=== PATIENT | female | born 1975 | race Caucasian/White ===

== ENCOUNTER 2017-04-01 15:53 | Emergency (ER) | payer MEDICAID ==
[~2017-04-01] VITALS: Ht 165.1 cm; Wt 156.5 kg
[~2017-04-01 15:53] MED LIST: ACCUNEB1.25 MG/3; AMLODIPINE BESY10 MG PO; CLONIDINE HCL0.1 MG PO; CLONIDINE HCL0.2 MG PO; LISINOPRIL10 MG PO; LISINOPRIL40 MG PO; METOPROLOL TART50 MG PO; PROAIR HFA INH8.5 GM
[2017-04-01] MEDS ORDERED: NITROGLYCERIN 2% OINT 1 GM PKT TOP ONE (16:45)
--- NOTE | 2017-04-01 17:25 | Diagnostic Imaging Report ---
PROCEDURE:X-RAY CHEST, ONE VIEW COMPARISON:Chest x-ray 04/19/08 INDICATIONS:CHEST PAIN FINDINGS: The cardiomediastinal silhouette is normal. The perivascular markings are normal. The lungs are clear. Costophrenic angles are sharp. No pneumothorax. The osseous structures and soft tissues are unremarkable. CONCLUSION: No acute cardiopulmonary abnormality. Dictated by: Ally Quiros M.D. on 04/01/2017 at 17:33 Electronically approved by: Ally Quiros M.D. on 04/01/2017 at 17:33
== END 2017-04-01 20:27 | disposition left against medical advice (07) ==
LOC: ER 15:53
DX: R07.9 Chest pain, unspecified (principal)
CPT/HCPCS: 71010; 93005

== ENCOUNTER 2017-06-12 16:13 | Observation (INO) | payer SELFPAY ==
[~2017-06-12] VITALS: Ht 165.1 cm; Wt 195.0 kg
--- OUTSIDE RECORDS SUMMARY | 2017-06-12 16:15 | XMS REPORT ---
Author Author [facility] Address Unknown Phone Unavailable Care Team Providers Care Flight Engineer Instructor Name Role Phone DERIC ANIDNO Unavailable Unavailable Problems This patient has no known problems. Allergies, Adverse Reactions, Alerts This patient has no known allergies or adverse reactions. Medications This patient has no known medications. Results Test Description Test Time Test Comments Text Results Atomic Results Result Comments CHEST SINGLE (NOT PORTABLE) [place] [address] Patient Name: GLORIA SOTELO MR #: [id number] : 1975 Age/Sex: 42/F Req #: [id number] Adm Physician: Ordered by: DERIC ANDINO MD Report #: [id number] Location: ER Room/Bed: Procedure: [id number] DX/CHEST SINGLE (NOT PORTABLE) Exam Date: 04/01/17 Exam Time: 1700 REPORT STATUS: Signed PROCEDURE: X-RAY CHEST, ONE VIEW COMPARISON: Chest x-ray 04/19/08 INDICATIONS: CHEST PAIN FINDINGS: The cardiomediastinal silhouette is normal. The perivascular markings are normal. The lungs are clear. Costophrenic angles are sharp. No pneumothorax. The osseous structures and soft tissues are unremarkable. CONCLUSION: No acute cardiopulmonary abnormality. Dictated by: Eugene Quiros M.D. on 04/01/2017 at 17:33 Electronically approved by: Eugene Quiros M.D. on 04/01/2017 at 17:33 Dictated By: EUGENE QUIROS MD 173 Transcribed By : SHAUNNA on 04/01/171732 COPY TO: DERIC ANDINO MD
--- OUTSIDE RECORDS SUMMARY | 2017-06-12 16:15 | XMS REPORT | Clinical Summary ---
Author Author [facility] Address Unknown Phone Unavailable Care Team Providers Care Substation Technician Name Role Phone Asked, Pcp PCP Unavailable Allergies Active Allergy Reactions Severity Noted Date Comments Morphine Shortness Of Breath High 12/05/2016 Current Medications Prescription Sig. Disp. Refills Start End Date Status Date ondansetron ODT Take 4 mg by mouth every Active (ZOFRAN-ODT) 4 MG 8 (eight) hours. disintegrating tablet warfarin (COUMADIN) 7.5 Take 1 tablet (7.5 mg 30 tablet 11 12/08/19 Active MG tablet total) by mouth daily. 17 pantoprazole (PROTONIX) Take 40 mg by mouth 12/08/19 Discontin 40 MG EC tablet daily. 17 ued gabapentin (NEURONTIN) Take 300 mg by mouth 3 12/08/19 Discontin 300 mg capsule (three) times a day. 17 ued metoprolol tartrate Take 50 mg by mouth 2 12/08/19 Discontin (LOPRESSOR) 50 mg tablet (two) times a day. 17 ued sotalol (BETAPACE) 80 MG Take 80 mg by mouth 2 12/08/19 Discontin tablet (two) times a day. 17 ued escitalopram (LEXAPRO) 10 Take 10 mg by mouth 12/08/19 Discontin MG tablet daily. 17 ued acetaZOLAMIDE (DIAMOX) Take 250 mg by mouth 12/08/19 Discontin 250 MG tablet daily. 17 ued atorvastatin (LIPITOR) 40 Take 40 mg by mouth 12/08/19 Discontin MG tablet daily. 17 ued aspirin (ECOTRIN) 81 MG Take 81 mg by mouth 12/08/19 Discontin enteric coated tablet daily. 17 ued theophylline (ZAC-24) Take 400 mg by mouth 12/08/19 Discontin 300 MG 24 hr capsule daily. 17 ued atorvastatin (LIPITOR) 40 Take 1 tablet (40 mg 30 tablet 0 12/08/19 01/07/20 MG tablet total) by mouth daily for 17 17 30 days. gabapentin (NEURONTIN) Take 1 capsule (300 mg 90 capsule 0 12/08/19 01/07/20 300 mg capsule total) by mouth 3 (three) 17 17 times a day for 30 days. sotalol (BETAPACE) 80 MG Take 1 tablet (80 mg 60 tablet 0 12/08/19 01/07/20 tablet total) by mouth 2 (two) 17 17 times a day for 30 days. acetaZOLAMIDE (DIAMOX) Take 1 tablet (250 mg 30 tablet 0 12/08/19 250 MG tablet total) by mouth daily for 17 17 30 days. enoxaparin (LOVENOX) 100 Inject 1.61 mL (161 mg 8.1 mL 0 12/08/19 mg/mL syringe total) under the skin 17 daily for 5 days. aspirin (ECOTRIN) 81 MG Take 1 tablet (81 mg 30 tablet 0 12/08/19 enteric coated tablet total) by mouth daily for 17 17 30 days. pantoprazole (PROTONIX) Take 1 tablet (40 mg 30 tablet 0 12/08/19 40 MG EC tablet total) by mouth daily for 17 17 30 days. escitalopram (LEXAPRO) 10 Take 1 tablet (10 mg 30 tablet 0 12/08/19 01/07/20 MG tablet total) by mouth daily for 17 17 30 days. theophylline (ZAC-24) Take 1 capsule (300 mg 30 capsule 0 12/08/19 01/07/20 300 MG 24 hr capsule total) by mouth daily for 17 17 30 days. Active Problems Problem Noted Date Shortness of breath 12/05/2016 Encounters Date Type Specialty Care Team Description 12/05/2016 Emergency General Internal Medicine Mary Marie, Shortness of breath - DO (Primary Dx) 12/07/2016 Taylor Sher MD after 06/11/2016 Immunizations Name Dates Previously Given Next Due FLUCELVAX QUAD PF (0.5mL 12/07/2016 syringe) Social History Tobacco Use Types Packs/Day Years Used Date Current Every Day Smoker Cigarettes 1 20 Alcohol Use Drinks/Week oz/Week Comments No Sex Assigned at Date Recorded Not on file Last Filed Vital Signs Vital Sign Reading Time Taken Blood Pressure 134/94 12/07/2016 3:19 PM CDT Pulse 78 12/07/2016 3:19 PM CDT Temperature 35.9 C (96.7 F) 12/07/2016 3:19 PM CDT Respiratory Rate 24 12/07/2016 3:19 PM CDT Oxygen Saturation 98% 12/07/2016 3:19 PM CDT Inhaled Oxygen - - Concentration Weight 181 kg (399 lb 9.6 oz) 12/06/2016 1:04 AM CDT Height 165.1 cm (5' 5") 12/06/2016 1:04 AM CDT Body Mass Index 66.5 12/06/2016 1:04 AM CDT Plan of Treatment Health Maintenance Due Date Last Done Comments PAP SMEAR 1995 INFLUENZA VACCINE Completed 12/07/2016 Procedures Procedure Name Priority Date/Time Associated Diagnosis Comments ECHOCARDIOGRAM 2D Routine 12/07/2016 Results for this COMPLETE W MMODE SPECTRAL 3:13 PM CDT procedure are in the [facility] (70944) results section. after 06/11/2016 Results * Echocardiogram complete w contrast and 3D if needed (12/07/2016 3:13 PM) Component Value Ref Range Velocity Ratio (V1/V2) 0.79 m/s AoV Mean PG 3.27 mmHg AV LVOT peak gradient 3.71 mmHg MV mean gradient 1.48 mmHg MV valve area p 1/2 2.99 cm2 method E/A ratio 0.83 E wave decelartion time 253.80 msec LVOT Diam,S 2.06 cm LVOT area 3.33 cm2 LVOT Vmax 0.96 m/s LVOT VTI 0.19 m AoV Peak PG 5.93 mmHg MV Peak E Rafa 0.74 m/s MV stenosis pressure 1/2 73.60 ms time MV Peak A Rafa 0.89 m/s AoV Area, Vmax 2.64 cm2 AoV Area, VTI 2.79 cm2 AoV Vmax 1.22 m/s Left Atrium Dimension 4.39 cm Anterior TR Vpeak 2.78 mm/s MV E A ratio 0.84 mmHg TR pk grad 30.86 mmHg MR peak grad 2.54 mmHg Ao Root Diameter 3.19 cm LVOT CO 4.88 l/min LVOT HR for LVOT CO 76.44 bpm MV Vmax 0.80 m MV VTI Tips 0.19 m AoV Vmn 0.85 Ao Root Diameter 3.19 cm AoV VTI 0.23 m MV AE ratio 1.20 LVOT Vmn 0.68 Aov area Vmn 2.68 cm2 LVOT mean grad 2.14 mmHg MAX Pred HR 177.24 85 of MPHR 150.65 Calc MPHR 177.24 bpm MV Decel slope 2.92 m/s2 Pred Exer Dur R1 9.77 Pred METS R1 9.14 Specimen [facility] [address] [place] [id number] Narrative The left ventricle chamber size is normal. Left Ventricular ejection fraction is 50 - 55%. Left atrium size is mildly dilated. * Salmonella/shigella culture (12/07/2016 10:30 AM) Component Value Ref Range Salmonella/shigella No Aeromonas isolated culture isolate Comment: Specimen Information Specimen Source: Stool Specimen Site: Nonpreserved Specimen [facility]forming [facility] [address] [place] [address] * Gastrointestinal panel (12/07/2016 10:30 AM) Component Value Ref Range Gastrointestinal panel Negative for all pathogens tested: Negative for Salmonella Negative for Campylobacter Negative for Diarrheagenic E coli/Shigella Negative for Shiga-like toxin-producing E coli Negative for Plesiomonas shigelloides Negative for Yersinia enterocolitica Negative for Vibrio species Negative for Clostridium difficile (Toxin A/B) Negative for Cryptosporidium Negative for Giardia lamblia Negative for Cyclospora cayeteanensis Negative for Entamoeba histolytica Negative for Adenovirus F 40/41 Negative for Astrovirus Negative for Norovirus GI/GII Negative for Rotavirus A Negative for Sapovirus Negative for Clostridium difficile toxin Negative for E coli 0157 This real-time PCR assay detects the presence of nucleic acids (RNA or DNA) for the gastrointestinal pathogens listed. A result of "Not-detected" does not exclude the possibility of the presence of one or more pathogens at concentrations less than the detectable limits of the assay. Comment: Specimen Information Specimen Source: Stool Specimen Site: Nonpreserved Specimen Performing [facility] [address] [place] [address] * Troponin (12/07/2016 8:31 AM) Only the most recent of 6 results within the time period is included. Component Value Ref Range Troponin <0.01 0.00 - 0.60 ng/mL Comment: 0.11 - 1.49 ng/ml May indicate increased risk of acute coronary syndrome. >=1.5 ng/ml Consistent with acute myocardial infarction. The diagnostic value of a single normal or non-diagnostic result is questionable. Serial samples at 2-6 hour intervals are required to rule out acute myocardial injury. Specimen Performing Laboratory Plasma specimen [facility] [address] [place] [address] * ECG ED Preliminary Interpretation - NOT AN ORDER (12/07/2016 6:02 AM) Only the most recent of 2 results within the time period is included. Narrative Mary Marie DO 12/07/20166:02 AM ECG ED Preliminary Interpretation - Not an Order Performed by: MARY MARIE Authorized by: MARY MARIE ECG reviewed by ED Physician in the absence of a green building architect: yes Interpretation: Interpretation: abnormal Rate: ECG rate:90 ECG rate assessment: normal Rhythm: Rhythm: sinus rhythm Ectopy: Ectopy: none QRS: QRS axis:Left Conduction: Conduction: normal ST segments: ST segments:Normal T waves: T waves: normal Comments: ECG completed at 2132 on 12/05/2016. * Estimated GFR (12/07/2016 5:02 AM) Only the most recent of 4 results within the time period is included. Component Value Ref Range GFR Non Af Amer >90 mL/min/1.73 m2 GFR Af Amer >90 mL/min/1.73 m2 Comment: Chronic kidney disease: <60 mL/min/1.73m2 Kidney failure: <15 mL/min/1.73m2 The estimated GFR is calculated from the IDMS-traceable Modification of Diet in Renal Disease Equation. The accuracy of the calculation is poor when the creatinine is normal. Calculated values >90 mL/min/1.73m2 are not reported. This equation has not been validated in children (<18 years), women, the elderly (>70 years), or ethnic groups other than Caucasians and Americans. Specimen Performing Laboratory Plasma specimen [facility] [address] [place] [address] * CBC with platelet and differential (12/07/2016 5:02 AM) Only the most recent of 3 results within the time period is included. Component Value Ref Range WBC 6.9 4.2 - 11.0 k/uL RBC 4.36 4.04 - 5.86 m/uL HGB 10.9 (L) 11.5 - 15.3 g/dL HCT 35.6 34.0 - 45.0 % MCV 81.7 80.0 - 98.0 fL MCH 25.0 (L) 27.0 - 34.0 pg MCHC 30.6 (L) 31.5 - 36.5 g/dL RDW - SD 43.8 37.0 - 51.0 fL MPV 9.3 7.4 - 10.4 fL Platelet count 295 150 - 400 k/uL Nucleated RBC 0.00 /100 WBC Neutrophils 59.3 36.0 - 66.0 % Lymphocytes 29.8 24.0 - 44.0 % Monocytes 6.5 (H) 0.0 - 6.0 % Eosinophils 3.6 0.0 - 6.0 % Basophils 0.4 0.0 - 1.2 % Immature granulocytes 0.4 0.0 - 1.0 % Specimen Performing Laboratory Blood [facility] [address] [place] [address] [place] [address] * Lipid panel (12/07/2016 5:02 AM) Component Value Ref Range Cholesterol 127 120 - 200 mg/dL Triglycerides 104 50 - 150 mg/dL HDL cholesterol 36 (L) 40 - 60 mg/dL LDL cholesterol 87Comment: Result obtained by direct LDL mg/dL measurement Lipid panel See below interpretation Comment: Total Cholesterol (mg/dL) LDL Cholesterol (mg/dL) <200 Desirable <100 Optimal 200-239 Borderline-high 100-129 Near or above optimal >=240 High 130-159 Borderline-high 160-189 High >=190 Very high HDL Cholesterol (mg/dL) Triglycerides (mg/dL) <40 Low <150 Normal >=60 High 150-199 Borderline-high 200-499 High >=500 Very high Risk Catergories that modify LDL goals. Risk Catergories LDL goal (mg/dL) CHD and CHD risk equivalent <100 (10-year risk >20%) Multiple (2+) risk factors <130 (10-year risk=<20%) 0-1 risk factors <160 (<10-year risk) Defining levels of lipids in metabolic syndrome Triglycerides >=150 mg/dL HDL Cholesterol Men <40 mg/dL Women <50 mg/dL Non-HDL cholesterol is a second target for therapy in persons with high triglycerides (>=200 mg/dL) Specimen Performing Laboratory Plasma specimen [facility] [place] [address] * Comprehensive metabolic panel (12/07/2016 5:02 AM) Only the most recent of 2 results within the time period is included. Component Value Ref Range Sodium 140 135 - 150 mEq/L Potassium 3.5 3.5 - 5.0 mEq/L Chloride 103 100 - 109 mEq/L CO2 28 24 - 32 mmol/L Anion gap 9 7 - 15 mEq/L Comment: Starting from June , anion gap calculation no longer incorporates potassium. Please note the change. BUN 6 (L) 7 - 18 mg/dL Creatinine 0.5 (L) 0.8 - 1.5 mg/dL Glucose 96 65 - 100 mg/dL Calcium 8.0 (L) 8.6 - 10.7 mg/dL Protein 6.4 6.3 - 8.2 g/dL Albumin 2.5 (L) 3.2 - 5.0 g/dL A/G ratio 0.6 (L) 0.7 - 3.8 Alkaline phosphatase 87 30 - 120 U/L AST 16 15 - 37 U/L ALT 16 (L) 30 - 65 U/L Total bilirubin 0.2 0.2 - 1.2 mg/dL Specimen Performing Laboratory Plasma specimen [facility] [employer] [facility] [place] [address] * Prothrombin time with INR (12/07/2016 5:00 AM) Only the most recent of 2 results within the time period is included. Component Value Ref Range Prothrombin time 13.6 12.0 - 15.0 sec INR 1.04 0.92 - 1.12 Comment: For patients on anticoagulant therapy, reference ranges below: Indication: INR Value Treatment of Venous Thrombosis, 2.0-3.0 pulmonary emboli, or prophylaxis of a venous thrombosis, or systemic emboli. High dose, high risk patients 3.0-4.5 with mechanical valves. NOTE: INR values over 3.0 are sometimes associated with gastrointestinal hemorrhage, especially values over 4.0. Specimen Performing Laboratory Blood [facility] [place] [address] * Hemoglobin A1c (12/06/2016 12:53 PM) Component Value Ref Range Hemoglobin A1C 5.6 4.0 - 6.0 % Comment: Less than 6% - Goal of therapy for Type II Diabetes Less than 7%- Goal of therapy for Type I Diabetes Less than 8%- Acceptable control for Type I or Type II Diabetes Greater than 8%- Unacceptable control; action indicated. (A DA94) Specimen Performing Laboratory Blood [facility] [address] [place] [address] * Basic metabolic panel (12/06/2016 12:53 PM) Only the most recent of 2 results within the time period is included. Component Value Ref Range Sodium 139 135 - 150 mEq/L Potassium 3.4 (L) 3.5 - 5.0 mEq/L Chloride 101 100 - 109 mEq/L CO2 30 24 - 32 mmol/L Anion gap 8 7 - 15 mEq/L Comment: Starting from June , anion gap calculation no longer incorporates potassium. Please note the change. BUN 7 7 - 18 mg/dL Creatinine 0.6 (L) 0.8 - 1.5 mg/dL Glucose 97 65 - 100 mg/dL Calcium 8.5 (L) 8.6 - 10.7 mg/dL Specimen Performing Laboratory Plasma specimen [facility] [address] [place] [address] * CT Angiogram Pe Chest (12/06/2016 10:04 AM) Specimen Performing Laboratory [facility] [address] [place] [address] Narrative EXAMINATION: CT ANGIOGRAM PE CHEST CLINICAL HISTORY: r o PEpneumonia TECHNIQUE: CT angiographic images of the chest were obtained during intravenous administration of iodinated contrast. Computerized reformatted images and 3-D MIP images were also obtained and archived (CT pulmonary embolus protocol).CT imaging was performed with iterative reconstruction technique and/or automated exposure control to reduce radiation dose. COMPARISON: None. FINDINGS: Heart size is moderately to markedly enlarged. Mild intrathoracic aortic ectasia is seen. Pulmonary artery is normal in caliber. No enlarged mediastinal lymph node is seen. Study is limited due to patient's body habitus. No filling defect is seen in the visible pulmonary arterial tree. There is no definite CT evidence pulmonary embolus. Mild bilateral bronchial wall thickening is seen. No pulmonary infiltrate is seen. Liver is within normal limits. There is mild splenomegaly. The spleen is 13.3 cm length. Pancreas, adrenals, and left kidney are within normal limits in their visible portions. Suspicious osseous lesion is not seen IMPRESSION: No pulmonary embolus on study which is slightly limited by patient body habitus. Splenomegaly [facility]-[id number] Procedure Note [facility], Radiology Results Incoming - 12/06/2016 10:17 AM CDT EXAMINATION: CT ANGIOGRAM PE CHEST CLINICAL HISTORY: r o PE pneumonia TECHNIQUE: CT angiographic images of the chest were obtained during intravenous administration of iodinated contrast. Computerized reformatted images and 3-D MIP images were also obtained and archived (CT pulmonary embolus protocol).CT imaging was performed with iterative reconstruction technique and/or automated exposure control to reduce radiation dose. COMPARISON: None. FINDINGS: Heart size is moderately to markedly enlarged. Mild intrathoracic aortic ectasia is seen. Pulmonary artery is normal in caliber. No enlarged mediastinal lymph node is seen. Study is limited due to patient's body habitus. No filling defect is seen in the visible pulmonary arterial tree. There is no definite CT evidence pulmonary embolus. Mild bilateral bronchial wall thickening is seen. No pulmonary infiltrate is seen. Liver is within normal limits. There is mild splenomegaly. The spleen is 13.3 cm length. Pancreas, adrenals, and left kidney are within normal limits in their visible portions. Suspicious osseous lesion is not seen IMPRESSION: No pulmonary embolus on study which is slightly limited by patient body habitus. Splenomegaly [facility]-[id number] * ECG 12 lead (12/05/2016 9:32 PM) Only the most recent of 2 results within the time period is included. Component Value Ref Range Ventricular rate 90 Atrial rate 90 MS interval 144 QRSD interval 96 QT interval 380 QTC interval 464 P axis 1 62 QRS axis 1 -32 T wave axis 19 EKG impression Normal sinus rhythm-Left axis deviation-Low voltage QRS-Possible Anterolateral infarct , age undetermined-Abnormal ECG-No previous ECGs available- Specimen Performing Laboratory [facility] [address] [place] [address] * XR Chest 2 Vw (12/05/2016 7:13 PM) Specimen Performing Laboratory [facility] [address] [place] [address] Narrative EXAMINATION:XR CHEST 2 VW CLINICAL HISTORY:SHORTNESS OF BREATH COMPARISON:None IMPRESSION: 1.Heart size is enlarged. 2.There is some vascular congestion and basal volume loss. 3.There are no pleural effusions. [id number] Procedure Note Hm Interface, Radiology Results Incoming - 12/05/2016 7:23 PM CDT EXAMINATION: XR CHEST 2 VW CLINICAL HISTORY: SHORTNESS OF BREATH COMPARISON: None IMPRESSION: 1. Heart size is enlarged. 2. There is some vascular congestion and basal volume loss. 3. There are no pleural effusions. [id number] * B natriuretic peptide (12/05/2016 5:49 PM) Component Value Ref Range BNP 56 0 - 100 pg/mL Specimen Performing Laboratory Blood [facility] [place] [address] * Creatine kinase, total (CPK) (12/05/2016 5:49 PM) Component Value Ref Range Creatine kinase 78 61 - 224 U/L Specimen Performing Laboratory Plasma specimen [facility] [place] [address] after 06/11/2016
[2017-06-12] MEDS ORDERED: MORPHINE SULFATE 4 MG/ML SYR IV STA (16:49)
[2017-06-12] MEDS ORDERED: ONDANSETRON HCL INJ 2 MG/ML VIAL IV STA (16:49)
[2017-06-12] MEDS ORDERED: MORPHINE SULFATE 2 MG/ML SYR ONE (17:10)
[2017-06-12 17:11] LABS: BASOPHILS % 0.4 % (0.0-1.0); EOSINOPHILS # (AUTO) 0.2 (0.0-0.4); EOSINOPHILS % 2.1 % (0.0-6.0); HEMATOCRIT 39.5 % (34.2-44.1); HEMOGLOBIN 12.4 g/dL (12.0-16.0); MEAN CORPUSCULAR HEMOGLOBIN 25.4 pg (28-32); MEAN CORPUSCULAR HGB CONC 31.4 g/dL (31-35); MEAN CORPUSCULAR VOLUME 80.9 fL (81-99); MONOCYTES # (AUTO) 0.5 (0.2-0.8); MONOCYTES % 4.7 % (4.4-11.3); NEUTROPHILS # (AUTO) 7.3 (2.1-6.9); NEUTROPHILS % 65.1 % (38.7-80.0); PLATELET COUNT 348 x10e3/uL (140-360); RED BLOOD COUNT 4.88 x10e6/uL (3.6-5.1); RED CELL DISTRIBUTION WIDTH 16.3 % (11.7-14.4)
[2017-06-12 17:20] LABS: INR 1.06
[2017-06-12 17:21] LABS: PARTIAL THROMBOPLASTIN TIME 24.7 seconds (23.8-35.5)
[2017-06-12 17:28] LABS: ALANINE AMINOTRANSFERASE 12 IU/L (0-55); ALBUMIN 3.1 g/dL (3.5-5.0); ALBUMIN/GLOBULIN RATIO 0.7 (0.8-2.0); ALKALINE PHOSPHATASE 89 IU/L (40-150); ANION GAP 11.6 mmol/L (8-16); BLOOD UREA NITROGEN 12 mg/dL (7-26); BUN/CREATININE RATIO 14 (6-25); CARBON DIOXIDE 29 mmol/L (22-29); CHLORIDE 99 mmol/L (98-107); CREATINE KINASE 101 IU/L (29-168); CREATININE, SERUM 0.84 mg/dL (0.57-1.11); EST GLOMERULAR FILTRATION RATE > 60 ML/MIN (60-); GLUCOSE 99 mg/dL (74-118); MAGNESIUM 1.6 MG/DL (1.3-2.1); POTASSIUM 3.6 mmol/L (3.5-5.1); SODIUM 136 mmol/L (136-145)
--- NOTE | 2017-06-12 17:59 | Diagnostic Imaging Report ---
Examination: Single AP view of the chest. COMPARISON: AP chest 04/01/2017 INDICATION: Chest pain, shortness of breath IMPRESSION: Exam limited by soft tissue attenuation likely from large body habitus. 1. Lines and Tubes: None 2. Lungs are grossly clear. No consolidation or effusion. 3. Cardiomediastinal silhouette is unremarkable. Pulmonary vasculature is normal. 4. No acute bony abnormalities. Signed by: Dr. Daniel Courtney M.D. on 06/12/2017 5:55 PM
[2017-06-12] MEDS ORDERED: SODIUM CHLORIDE 0.9% 50ML 50 ML ONE (18:28)
[2017-06-12] MEDS ORDERED: IOPAMIDOL 370 MG/ML 200 ML INFUS..BTL INJ ONE (18:29)
--- NOTE | 2017-06-12 18:41 | Diagnostic Imaging Report ---
EXAMINATION: CT of the chest with contrast, PE protocol. TECHNIQUE: Spiral CT images of the chest were performed from the lung apices through the level of the adrenal glands after the IV administration of 100 cc of Isovue 370. Thin section reconstructions were obtained with special concentration on the pulmonary arteries. COMPARISON: <none> CLINICAL HISTORY:Shortness of breath DISCUSSION: Exam limited by beam attenuation from patient's large body habitus. Lungs: No filling defects are identified in the main, right or left pulmonary arteries to their segmental levels, to suggest pulmonary embolism. Linear subsegmental atelectasis or scarring in the anterior left lower lobe (series 3, image 81). 5 mm nodule in the lateral right lower lobe (series 3, image 84). Focal scarring in the lateral right upper lobe adjacent to the major fissure (series 3, image 52). No other pulmonary nodules, masses or consolidation. Linear atelectatic changes in bilateral lower lobes (series 3, image 86). Airways: <The major airways are clear.> Pleura: <There is no evidence of pleural effusion or pneumothorax.> Heart and mediastinum: Thyroid is unremarkable. Mild cardiomegaly. Atherosclerotic calcification of the mitral annulus and to a lesser degree coronary artery and thoracic aortic branches. Aorta is nonaneurysmal. Main pulmonary artery is normal in caliber. Abdomen: The visualized portions of the liver, spleen, adrenal glands and left kidney are unremarkable. Bones and soft tissues: No aggressive lytic lesions. Multilevel degenerative disc changes in the thoracic spine. Soft tissues are unremarkable. IMPRESSION: 1. Limited exam due to beam attenuation from patient's large body habitus. 2. No CT evidence of pulmonary embolism to the segmental level, within the limitations of the study. 3. Mild bilateral lower lobe atelectatic changes. No consolidation or effusion. 4. 5 mm pulmonary nodule in the right lower lobe. No further follow-up is indicated if this is a low risk patient per Fleischner society guidelines 2017. 5. Mild cardiomegaly. Signed by: Dr. Daniel Courtney M.D. on 06/12/2017 6:37 PM
[2017-06-12] MEDS ORDERED: METOPROLOL TARTRATE 25 MG TAB PO SCH (19:15)
[2017-06-12] MEDS ORDERED: ASPIRIN 81 MG CHEW TAB PO ONE (19:15)
[2017-06-12] MEDS ORDERED: SODIUM CHLORIDE FLUSH 10 ML SYR INJ PRN (19:15)
[2017-06-12] MEDS ORDERED: ONDANSETRON HCL INJ 2 MG/ML VIAL IV PRN (19:15)
[2017-06-12] MEDS ORDERED: NITROGLYCERIN 0.4 MG SUBL SL PRN (19:15)
--- OUTSIDE RECORDS SUMMARY | 2017-06-12 19:41 | XMS REPORT | Clinical Summary ---
Author Author [facility]ie [facility] Organization [facility] Address Unknown Phone Unavailable Care Team Providers Care Drawing In Machine Tender Helper Name Role Phone Asked, Pcp PCP Unavailable [...] CDT procedure are in the [facility] (21235) results section. after 06/11/2016 Results * Echocardiogram [...] Pred METS R1 9.14 Specimen Performing Laboratory [facility] [address] [place] [id number] Narrative The left ventricle chamber size is normal. Left Ventricular ejection fraction is 50 - 55%. Left atrium size is mildly dilated. * Salmonella/shigella culture (12/07/2016 10:30 AM) Component Value Ref Range Salmonella/shigella No Aeromonas isolated culture isolate Comment: Specimen Information Specimen Source: Stool Specimen Site: Nonpreserved Specimen Performing [facility] [address] [place] [address] * Gastrointestinal panel (12/07/2016 10:30 AM) Component [...] Site: Nonpreserved Specimen Performing Laboratory [facility]ICINE [address] [place] [address] * Troponin (12/07/2016 8:31 AM) Only the [...] myocardial injury. Specimen Performing Laboratory Plasma specimen [facility] DEPARTMENT OF PATHOLOGY AND GENOMIC MEDICINE [address] [place] [address] * ECG ED Preliminary Interpretation - NOT AN ORDER (12/07/2016 6:02 AM) Only the most recent of 2 results within the time period is included. Narrative Mary Marie DO 12/07/20166:02 AM ECG ED Preliminary Interpretation - Not an Order Performed by: MARY MARIE Authorized by: MARY MARIE ECG reviewed by ED Physician in the absence of a emergency response technician: yes Interpretation: Interpretation: abnormal Rate: ECG rate:90 [...] and Americans. Specimen Performing Laboratory Plasma specimen [facility] DEPARTMENT OF PATHOLOGY AND GENOMIC MEDICINE [address] [place] [address] * CBC with platelet and differential (12/07/2016 [...] - 1.0 % Specimen Performing Laboratory Blood [facility] DEPARTMENT OF PATHOLOGY AND GENOMIC MEDICINE [address] [place] [address] [place] [address] * Lipid panel (12/07/2016 5:02 AM) Component [...] (>=200 mg/dL) Specimen Performing Laboratory Plasma specimen [facility] DEPARTMENT OF PATHOLOGY AND GENOMIC MEDICINE [address] [place] [address] * Comprehensive metabolic panel (12/07/2016 5:02 AM) [...] 1.2 mg/dL Specimen Performing Laboratory Plasma specimen [facility] DEPARTMENT OF PATHOLOGY AND [employer] MEDICINE [address] [address] * Prothrombin time with INR (12/07/2016 5:00 [...] values over 4.0. Specimen Performing Laboratory Blood [facility] DEPARTMENT OF PATHOLOGY AND GENOMIC MEDICINE [address] [address] * Hemoglobin A1c (12/06/2016 12:53 PM) Component [...] indicated. (A DA94) Specimen Performing Laboratory Blood [facility] DEPARTMENT OF PATHOLOGY AND GENOMIC MEDICINE [address] [place] [address] * Basic metabolic panel (12/06/2016 12:53 PM) [...] 10.7 mg/dL Specimen Performing Laboratory Plasma specimen [facility] DEPARTMENT OF PATHOLOGY AND GENOMIC MEDICINE [address] [place] [address] * CT Angiogram Pe Chest (12/06/2016 10:04 AM) Specimen Performing Laboratory [facility] [address] [place] [address] Narrative EXAMINATION: CT ANGIOGRAM PE CHEST CLINICAL [...] slightly limited by patient body habitus. Splenomegaly [facility]-[id number] Procedure Note [facility], Radiology Results Incoming - 12/06/2016 10:17 AM [...] slightly limited by patient body habitus. Splenomegaly [facility]-[id number] * ECG 12 lead (12/05/2016 9:32 PM) Only the most recent of 2 results within the time period is included. Component Value Ref Range Ventricular rate 90 Atrial rate 90 LA interval 144 QRSD interval 96 QT interval 380 QTC interval 464 P axis 1 62 QRS axis 1 -32 T wave axis 19 EKG impression Normal sinus rhythm-Left axis deviation-Low voltage QRS-Possible Anterolateral infarct , age undetermined-Abnormal ECG-No previous ECGs available- Specimen Performing Laboratory [facility] [address] [place] [address] * XR Chest 2 Vw (12/05/2016 7:13 PM) Specimen Performing Laboratory [facility] [address] [place] [address] Narrative EXAMINATION:XR CHEST 2 VW CLINICAL HISTORY:SHORTNESS OF BREATH COMPARISON:None IMPRESSION: 1.Heart size is enlarged. 2.There is some vascular congestion and basal volume loss. 3.There are no pleural effusions. [id number] Procedure Note [facility], Radiology Results Incoming - 12/05/2016 7:23 PM CDT EXAMINATION: XR CHEST 2 VW CLINICAL HISTORY: SHORTNESS OF BREATH COMPARISON: None IMPRESSION: 1. Heart size is enlarged. 2. There is some vascular congestion and basal volume loss. 3. There are no pleural effusions. [id number] * B natriuretic peptide (12/05/2016 5:49 PM) Component Value Ref Range BNP 56 0 - 100 pg/mL Specimen Performing Laboratory Blood [facility] DEPARTMENT OF PATHOLOGY AND GENOMIC MEDICINE [address] [address] * Creatine kinase, total (CPK) (12/05/2016 5:49 PM) Component Value Ref Range Creatine kinase 78 61 - 224 U/L Specimen Performing Laboratory Plasma specimen [facility] DEPARTMENT OF PATHOLOGY AND GENOMIC MEDICINE [address] [address] after 06/11/2016
[2017-06-12] MEDS: ENOXAPARIN SODIUM INJ 100 MG/ML SYR SC SCH (20:24)
[2017-06-12] MEDS: FAMOTIDINE 20 MG/2 ML VIAL IV SCH (20:35)
[2017-06-12 20:50] VITALS: BP 175/106
[2017-06-12 21:25] VITALS: BP 175/106
[2017-06-12] MEDS: MORPHINE SULFATE 2 MG/ML SYR IV PRN (21:50)
[2017-06-13] VITALS (8 sets, daily range): BP systolic 118–130; BP diastolic 64–80
[2017-06-13] MEDS: NITROGLYCERIN 2% OINT 1 GM PKT TOP SCH ×5 (01:00→23:45)
[2017-06-13] MEDS ORDERED: ALBUTEROL SULF 0.083% NEB SOLN 3 ML NEB NEB SCH (03:00)
[2017-06-13 03:16] LABS: CREATINE KINASE 103 IU/L (29-168)
[2017-06-13 03:27] LABS: BASOPHILS # (AUTO) 0.1 (0.0-0.1); BASOPHILS % 0.5 % (0.0-1.0); EOSINOPHILS # (AUTO) 0.3 (0.0-0.4); EOSINOPHILS % 2.3 % (0.0-6.0); HEMOGLOBIN 11.8 g/dL (12.0-16.0); LYMPHOCYTES # (AUTO) 3.8 (1.0-3.2); MEAN CORPUSCULAR HEMOGLOBIN 25.1 pg (28-32); MEAN CORPUSCULAR HGB CONC 30.3 g/dL (31-35); MEAN CORPUSCULAR VOLUME 82.8 fL (81-99); MONOCYTES # (AUTO) 0.6 (0.2-0.8); MONOCYTES % 5.8 % (4.4-11.3); NEUTROPHILS % 55.8 % (38.7-80.0); PLATELET COUNT 309 x10e3/uL (140-360); RED BLOOD COUNT 4.71 x10e6/uL (3.6-5.1); RED CELL DISTRIBUTION WIDTH 16.5 % (11.7-14.4)
[2017-06-13 03:41] LABS: ALANINE AMINOTRANSFERASE 13 IU/L (0-55); ALBUMIN 2.9 g/dL (3.5-5.0); ALBUMIN/GLOBULIN RATIO 0.7 (0.8-2.0); ALKALINE PHOSPHATASE 82 IU/L (40-150); ANION GAP 12.1 mmol/L (8-16); BLOOD UREA NITROGEN 13 mg/dL (7-26); BUN/CREATININE RATIO 17 (6-25); CALCIUM 8.6 mg/dL (8.4-10.2); CARBON DIOXIDE 26 mmol/L (22-29); CHLORIDE 103 mmol/L (98-107); CHOL/HDL RATIO 4.3 (3.0-3.6); CHOLESTEROL 178 MD/DL (0-199); CREATININE, SERUM 0.77 mg/dL (0.57-1.11); EST GLOMERULAR FILTRATION RATE > 60 ML/MIN (60-); GLUCOSE 103 mg/dL (74-118); HDL CHOLESTEROL 41 MG/DL (40-60); LDL CHOLESTEROL 103 MG/DL (60-130); POTASSIUM 4.1 mmol/L (3.5-5.1); SODIUM 137 mmol/L (136-145); TRIGLYCERIDES 172 MG/DL (0-149)
[2017-06-13] MEDS: ALBUTEROL SULF 0.083% NEB SOLN 3 ML NEB NEB PRN ×3 (07:17→15:15)
[2017-06-13] MEDS: FAMOTIDINE 20 MG/2 ML VIAL IV SCH (08:15)
[2017-06-13] MEDS ORDERED: LISINOPRIL 10 MG TAB PO SCH (09:00)
[2017-06-13] MEDS: LISINOPRIL 10 MG TAB PO SCH ×2 (09:00→09:18)
[2017-06-13] MEDS: METOPROLOL TARTRATE 50 MG TAB PO SCH ×2 (09:00→09:13)
[2017-06-13] MEDS: PREDNISONE 10 MG TAB PO SCH ×2 (09:00→09:18)
[2017-06-13] MEDS ORDERED: AMLODIPINE BESYLATE 10 MG TAB PO SCH (09:00)
[2017-06-13] MEDS ORDERED: CLONIDINE HCL 0.1 MG TAB PO SCH (09:00)
[2017-06-13] MEDS: ASPIRIN 81 MG ENTERIC COATED PO SCH (09:13)
[2017-06-13] MEDS: ENOXAPARIN SODIUM INJ 100 MG/ML SYR SC SCH ×2 (09:13→17:55)
[2017-06-13] MEDS: NICOTINE 14 MG/EA PATCH TOP SCH (09:14)
[2017-06-13] MEDS: MORPHINE SULFATE 2 MG/ML SYR IV PRN ×2 (09:38→19:58)
[2017-06-13] MEDS ORDERED: THEOPHYLLINE A200 MG PO (09:52)
[2017-06-13] MEDS ORDERED: ACETAZOLAMIDE250 MG PO (09:52)
[2017-06-13] MEDS ORDERED: LEXAPRO10 MG PO (09:52)
[2017-06-13] MEDS ORDERED: PANTOPRAZOLE SO40 MG PO (09:52)
[2017-06-13] MEDS ORDERED: ATORVASTATIN CA20 MG PO (09:52)
[2017-06-13] MEDS ORDERED: NITROGLYCERIN0.4 MG SL (09:52)
[2017-06-13] MEDS ORDERED: GABAPENTIN300 MG PO (09:52)
[2017-06-13] MEDS ORDERED: ASPIRIN81 MG PO (09:52)
[2017-06-13] MEDS ORDERED: SOTALOL80 MG PO (09:56)
[2017-06-13 11:21] LABS: CREATINE KINASE 100 IU/L (29-168)
[2017-06-13] MEDS: GABAPENTIN 300 MG CAP PO SCH ×2 (15:48→21:18)
[2017-06-13] MEDS: SOTALOL HCL 80 MG TAB PO SCH (16:03)
[2017-06-13] MEDS ORDERED: METOPROLOL TARTRATE 25 MG TAB PO SCH (17:00)
--- NOTE | 2017-06-13 19:19 | Consultation ---
DATE OF CONSULTATION: CARDIOLOGY CONSULTATION CONSULTING PHYSICIAN: Dr. Kg Salazar. REASON FOR CONSULTATION: Chest pain. HISTORY OF PRESENT ILLNESS: Ms. Matson is a 42-year-old female, who came into the ER yesterday with reported progressive chest pain and shortness of breath. She states that she has been off her medication due to lack of insurance and inability to afford for the last 3 months; however, in the last week, she has noticed herself getting more short of breath and having constant chest pain. She reports her chest pain to be throughout her chest, but mostly in her substernal region. She states that the pain is constant, does get worse when she is up and about. She has a pertinent past medical history of COPD, coronary artery disease with recent stenting in 2016, PA, stroke as of last year, and hypertension. At the moment, she denies any chest pain. Does endorse some shortness of breath and fatigue. Denies palpitations, dizziness, syncope, fever, chills, nausea, or vomiting. REVIEW OF SYSTEMS: Negative except as mentioned above. PAST MEDICAL HISTORY 1. Hypertension. 2. Morbid obesity. 3. COPD. 4. Sleep apnea. 5. CAD and recent PA with 3 stents placed in 2015. 6. Recent stroke as of August of last year with left-sided deficits per her reporting. SOCIAL HISTORY: Active smoker. . Occasional drinks. Denies any illicit drug use. CARDIOVASCULAR MEDICATIONS 1. Aspirin 81 mg p.o. daily. 2. Nitro 1 topical every 6 hours. 3. Sotalol 80 mg p.o. b.i.d. 4. Gabapentin 300 mg p.o. t.i.d. 5. Atorvastatin 40 mg p.o. h.s. 6. Lovenox 100 mg subcu every 12 hours. PHYSICAL EXAMINATION VITAL SIGNS: Temperature 96.4, pulse 97, respiratory rate 20, blood pressure 116/64, oxygen saturation 99% on nasal cannula. GENERAL: Alert and oriented x3, resting comfortably in bed. Does not appear to be any acute distress. NECK: Supple. No JVD noted. LUNGS: Diminished breath sounds throughout. No wheezing. No rhonchi or crackles. CARDIOVASCULAR: Regular rate and rhythm. Normal S1 and S2. No murmurs. No gallops. ABDOMEN: Rounded. Soft and nontender. EXTREMITIES: Lower extremities, 2+ pedal pulses. No edema. Warm distal extremities. LABS: WBC 10.77, hemoglobin 11.8, hematocrit 39.0, platelets 309. Sodium 137, potassium 4.1, BUN 13, creatinine 0.77, GFR greater than 60. Magnesium 1.6, AST 16, ALT 13, alkaline phosphatase 82. CM-MB 5.50, creatinine kinase 103, troponin less than 0.001. Triglycerides 172, total cholesterol 178, LDL 103, HDL 41. Chest x-ray with no acute bony abnormalities, no consolidation or effusion, pulmonary vasculature in normal. CT scan of the chest with mild cardiomegaly, 5 mm pulmonary nodule in the right lower lobe, no evidence of pulmonary emboli. ASSESSMENT 1. Coronary artery disease, status post percutaneous coronary intervention and stenting last year with a recent myocardial infarction. 2. Hypertension. 3. Morbid obesity. 4. Active smoker. 5. Chronic obstructive pulmonary disease. 6. Poor medication compliance. 7. Pulmonary nodule. 8. Reported history of recent cerebrovascular accident. RECOMMENDATION: Resume all home medications. In addition to the above-listed cardiac medication, initiate Plavix. Blood pressure optimization. Weight loss counseling done and smoking cessation counseling done. Patient reports a recent normal stress test in [place] and also a normal echocardiogram in [place] as of end of last year. No needed for repeat stress test at this time. We will repeat echocardiogram to monitor any changes. Thank you for this consultation and allowing us to participate in this patient's care. Dictated By: Alexandria Coleman NP Job#: [id number] LUPE
[2017-06-13] MEDS ORDERED: ATORVASTATIN 20 MG TAB PO SCH (21:00)
[2017-06-14] VITALS (9 sets, daily range): BP systolic 114–144; BP diastolic 54–70
[2017-06-14] MEDS: ALBUTEROL SULF 0.083% NEB SOLN 3 ML NEB NEB PRN ×2 (00:50→14:54)
[2017-06-14] MEDS: NITROGLYCERIN 2% OINT 1 GM PKT TOP SCH ×3 (06:00→17:11)
[2017-06-14] MEDS ORDERED: PANTOPRAZOLE SOD 40 MG TABEC PO SCH (07:30)
[2017-06-14] MEDS ORDERED: CLOPIDOGREL BISULFATE 75 MG TAB PO SCH (09:00)
[2017-06-14] MEDS: ASPIRIN 81 MG ENTERIC COATED PO SCH (09:00)
[2017-06-14] MEDS ORDERED: ESCITALOPRAM OXALATE 10 MG TAB PO SCH (09:00)
[2017-06-14] MEDS ORDERED: ASPIRIN 81 MG CHEW TAB PO SCH (09:00)
[2017-06-14] MEDS ORDERED: ACETAZOLAMIDE 250 MG TAB PO SCH (09:00)
[2017-06-14] MEDS ORDERED: THEOPHYLLINE 200 MG TABCR PO SCH (09:00)
[2017-06-14] MEDS: ENOXAPARIN SODIUM INJ 100 MG/ML SYR SC SCH ×2 (10:05→18:56)
[2017-06-14] MEDS: NICOTINE 14 MG/EA PATCH TOP SCH (10:05)
[2017-06-14] MEDS: GABAPENTIN 300 MG CAP PO SCH ×2 (10:05→16:28)
[2017-06-14] MEDS: SOTALOL HCL 80 MG TAB PO SCH ×2 (10:05→17:11)
[2017-06-14] MEDS: MORPHINE SULFATE 2 MG/ML SYR IV PRN ×2 (10:14→18:20)
--- NOTE | 2017-06-15 | Progress Note ---
DATE: June 14, 2017 CARDIOLOGY PROGRESS NOTE SUBJECTIVE: Patient denies chest pain or shortness of breath. OBJECTIVE: VITAL SIGNS: Temperature 97.2 degrees, pulse 85, respiratory rate 20, blood pressure 141/65, oxygen saturation 97% on room air. GENERAL: Morbidly obese woman, in no acute distress, awake and alert. LUNGS: Clear to auscultation bilaterally. No wheezes or crackles. CARDIOVASCULAR: Normal rate, regular rhythm. No murmur. Normal S1 and S2. ABDOMEN: Soft, nontender. EXTREMITIES: No edema. CARDIAC MEDICATIONS: 1. Enoxaparin 100 mg subcutaneously q.12h. 2. Sotalol 80 mg p.o. b.i.d. 3. Clopidogrel 75 mg p.o. daily. 4. Aspirin 81 mg p.o. daily. 5. Acetazolamide 250 mg p.o. daily. 6. Atorvastatin 40 mg p.o. nightly. 7. Aspirin 81 mg p.o. q.a.m. LABS: None today. TELEMETRY: Normal sinus rhythm. IMPRESSION: 1. Coronary artery disease, status post percutaneous coronary intervention and stenting last year with recent myocardial infarction. 2. Hypertension. 3. Morbid obesity. 4. Tobacco abuse. 5. Chronic obstructive pulmonary disease. 6. Reported history of recent cerebrovascular accident. 7. Pulmonary nodule. 8. Poor medication compliance. RECOMMENDATIONS: Continue current cardiac medications. Blood pressure is improved with resuming home medications. Echocardiogram largely unremarkable with normal LV systolic function. No further cardiac evaluation is indicated at this time. Thank you for this consult. We will continue to follow. Job#: [id number]
== END 2017-06-14 20:04 | disposition home or self-care (01) ==
LOC: ER 16:13 → ERHOLD 19:01 → MED/SURG 20:16
PROVIDERS: ADMIT Family Medicine; ATTEND Family Medicine
DX: I25.110 Atherosclerotic heart disease of native coronary artery with unstable angina pectoris (principal); J44.1 Chronic obstructive pulmonary disease with (acute) exacerbation; R42 Dizziness and giddiness; E66.01 Morbid (severe) obesity due to excess calories; Z68.45 Body mass index [BMI] 70 or greater, adult; Z95.5 Presence of coronary angioplasty implant and graft; F17.210 Nicotine dependence, cigarettes, uncomplicated; R91.8 Other nonspecific abnormal finding of lung field; Z86.73 Personal history of transient ischemic attack (TIA), and cerebral infarction without residual deficits; Z91.14 Patient's other noncompliance with medication regimen
CPT/HCPCS: 36415 ×2; 71045; 71260; 80053 ×2; 80061; 82550 ×2; 82553 ×2; 83735; 83880; 84484 ×2; 85025 ×2; 85379; 85610; 85730; 93005; 93306; 94640 ×3; 99284; G0378 ×3; J1650 ×3; J2270 ×3; J2405 ×2; Q9967

== ENCOUNTER 2018-01-03 16:24 | Observation (INO) | payer SELFPAY ==
[~2018-01-03] VITALS: Ht 195.6 cm; Wt 172.5 kg
[~2018-01-03 16:24] MED LIST changes: +ACETAZOLAMIDE250 MG PO; +ASPIRIN81 MG PO; +ATORVASTATIN CA20 MG PO; +GABAPENTIN300 MG PO; +LEXAPRO10 MG PO; +NITROGLYCERIN0.4 MG SL; +PANTOPRAZOLE SO40 MG PO; +SOTALOL80 MG PO; +THEOPHYLLINE A200 MG PO
[2018-01-03] MEDS ORDERED: ASPIRIN 81 MG CHEW TAB PO ONE (17:00)
[2018-01-03] MEDS ORDERED: DEXAMETHASONE SOD PHOS INJ 4 MG/ML VIAL IV ONE (17:00)
[2018-01-03] MEDS ORDERED: ALBUTEROL/IPRATROPIUM 3 ML NEB NEB ONE ×2 (17:00→18:45)
--- NOTE | 2018-01-03 17:59 | Diagnostic Imaging Report ---
EXAMINATION: CHEST 2 VIEWS INDICATION: \S\chest pain / sob \S\[id number] \S\1737 COMPARISON: Chest CT and radiograph 06/12/2017 FINDINGS: PA and lateral views TUBES and LINES: None. LUNGS: Lungs are well inflated. Lungs are clear. There is no evidence of pneumonia or pulmonary edema. PLEURA: No pleural effusion or pneumothorax. HEART AND MEDIASTINUM: The cardiomediastinal silhouette is unremarkable. BONES AND SOFT TISSUES: There are degenerative changes in the thoracic spine. Soft tissues are unremarkable. UPPER ABDOMEN: No free air under the diaphragm. IMPRESSION: No acute thoracic abnormality. Signed by: DR. Ashwin Acosta MD on 01/03/2018 5:56 PM
[2018-01-03 18:31] LABS: BASOPHILS # (AUTO) 0.1 (0.0-0.1); BASOPHILS % 0.5 % (0.0-1.0); EOSINOPHILS # (AUTO) 0.2 (0.0-0.4); EOSINOPHILS % 2.2 % (0.0-6.0); HEMATOCRIT 43.5 % (34.2-44.1); HEMOGLOBIN 13.2 g/dL (12.0-16.0); LYMPHOCYTES # (AUTO) 3.4 (1.0-3.2); LYMPHOCYTES % 31.2 % (18.0-39.1); MEAN CORPUSCULAR HGB CONC 30.3 g/dL (31-35); MEAN CORPUSCULAR VOLUME 79.1 fL (81-99); MONOCYTES # (AUTO) 0.5 (0.2-0.8); MONOCYTES % 4.5 % (4.4-11.3); NEUTROPHILS # (AUTO) 6.6 (2.1-6.9); NEUTROPHILS % 61.2 % (38.7-80.0); PLATELET COUNT 331 x10e3/uL (140-360); RED CELL DISTRIBUTION WIDTH 18.5 % (11.7-14.4)
[2018-01-03] MEDS ORDERED: MORPHINE SULFATE 2 MG/ML SYR IV STA (18:40)
[2018-01-03 18:43] LABS: INR 0.91; PROTHROMBIN TIME 13.1 seconds (11.9-14.5)
[2018-01-03 18:44] LABS: PARTIAL THROMBOPLASTIN TIME 26.7 seconds (23.8-35.5)
[2018-01-03 18:51] LABS: ALANINE AMINOTRANSFERASE 18 IU/L (0-55); ALBUMIN 3.5 g/dL (3.5-5.0); ALBUMIN/GLOBULIN RATIO 0.8 (0.8-2.0); ALKALINE PHOSPHATASE 91 IU/L (40-150); ANION GAP 15.6 mmol/L (8-16); BLOOD UREA NITROGEN 7 mg/dL (7-26); BUN/CREATININE RATIO 9 (6-25); CALCIUM 9.4 mg/dL (8.4-10.2); CARBON DIOXIDE 27 mmol/L (22-29); CHLORIDE 101 mmol/L (98-107); CREATINE KINASE 89 IU/L (29-168); CREATININE, SERUM 0.76 mg/dL (0.57-1.11); EST GLOMERULAR FILTRATION RATE > 60 ML/MIN (60-); GLUCOSE 87 mg/dL (74-118); POTASSIUM 3.6 mmol/L (3.5-5.1); SODIUM 140 mmol/L (136-145)
[2018-01-03] MEDS ORDERED: SODIUM CHLORIDE 0.9% 100 ML 100 ML ONE (19:07)
[2018-01-03] MEDS ORDERED: IOPAMIDOL 370 MG/ML 200 ML INFUS..BTL INJ ONE (19:08)
--- NOTE | 2018-01-03 20:21 | Diagnostic Imaging Report ---
EXAM: CT Chest WITH contrast 01/03/2018 6:35 PM INDICATION: Recurrent shortness of breath. \S\pe protocol, sob, cp, hx PE \S\[id number] \S\4 COMPARISON: Chest CT 06/12/2017 TECHNIQUE: Chest was scanned utilizing a multidetector helical scanner from the lung apex through the level of the adrenal glands without administration of IV contrast. Coronal and sagittal reformations were obtained. PE protocol was performed. IV CONTRAST: 100 mL of Isovue-370 COMPLICATIONS: None RADIATION DOSE: Total DLP: 672.6 mGy*cm Estimated effective dose: (DLP x 0.014 x size factor) mSv CTDIvol has been reviewed. It is below the limits set by the Radiation Protocol Committee (RPC). Dose modulation, iterative reconstruction, and/or weight based adjustment of the mA/kV was utilized to reduce the radiation dose to as low as reasonably achievable. FINDINGS: Limited evaluation secondary to body habitus. LINES/ TUBES: None. LUNGS AND AIRWAYS: No filling defect is identified within the pulmonary arteries to the segmental level. No consolidations. Right lower lobe 5 mm nodule (series 3 image 77), stable. Left lower lobe (image 86), lingular (image 62), and right middle lobe scarring (image 79), stable. Right upper lobe scarring (image 47), stable. Airways are normal. PLEURA: The pleural spaces are clear. HEART AND MEDIASTINUM: The thyroid gland is normal. No mediastinal, hilar or axillary lymphadenopathy. The heart is normal in size.. There is no pericardial effusion. Main pulmonary artery measures 2.5 cm in diameter. Ascending aorta measures 3.4 cm in diameter. Coronary artery calcifications. UPPER ABDOMEN: Cholecystectomy clips. Stable fullness of the left adrenal gland. BONES: There are degenerative changes in the thoracic spine. SOFT TISSUES: Unremarkable. IMPRESSION: No evidence of pulmonary embolism to the segmental level, or acute thoracic abnormalities. Stable right lower lobe 5 mm pulmonary nodule. Recommend follow up according to Fleischner Society 2017 guidelines. Signed by: DR. Ashwin Acosta MD on 01/03/2018 8:18 PM
[2018-01-03] MEDS ORDERED: ALBUTEROL SULF 0.083% NEB SOLN 3 ML NEB NEB PRN (21:00)
[2018-01-03] MEDS ORDERED: NITROGLYCERIN 0.4 MG SUBL SL PRN (21:00)
[2018-01-03] MEDS: IPRATROPIUM BROMIDE 0.02% 2.5 ML NEB NEB SCH (22:09)
[2018-01-03] MEDS: ALBUTEROL SULF 0.083% NEB SOLN 3 ML NEB NEB SCH (22:10)
[2018-01-03] MEDS: METHYLPREDNISOLONE SOD SUCC 125 MG/2ML VIAL IV SCH (22:47)
[2018-01-03] MEDS: MORPHINE SULFATE 2 MG/ML SYR IV PRN (22:52)
[2018-01-04] MEDS: ALBUTEROL SULF 0.083% NEB SOLN 3 ML NEB NEB SCH (03:15)
[2018-01-04] MEDS: IPRATROPIUM BROMIDE 0.02% 2.5 ML NEB NEB SCH ×6 (03:15→23:32)
[2018-01-04 04:33] LABS: CREATINE KINASE 87 IU/L (29-168)
[2018-01-04] MEDS ORDERED: NITROGLYCERIN 0.4 MG SUBL SL SCH (05:15)
[2018-01-04] MEDS: SOTALOL HCL 80 MG TAB PO SCH ×3 (05:28→17:10)
[2018-01-04] MEDS: METHYLPREDNISOLONE SOD SUCC 125 MG/2ML VIAL IV SCH ×3 (06:09→21:04)
[2018-01-04 06:20] LABS: HEMATOCRIT 39.7 % (34.2-44.1); HEMOGLOBIN 12.3 g/dL (12.0-16.0); LYMPHOCYTES # (AUTO) 0.4 (1.0-3.2); LYMPHOCYTES % 7.6 % (18.0-39.1); MEAN CORPUSCULAR HEMOGLOBIN 23.9 pg (28-32); MEAN CORPUSCULAR VOLUME 77.2 fL (81-99); MONOCYTES % 0.4 % (4.4-11.3); NEUTROPHILS % 90.9 % (38.7-80.0); PLATELET COUNT 284 x10e3/uL (140-360); RED BLOOD COUNT 5.14 x10e6/uL (3.6-5.1); RED CELL DISTRIBUTION WIDTH 18.1 % (11.7-14.4)
[2018-01-04 06:43] LABS: ANION GAP 15.8 mmol/L (8-16); BLOOD UREA NITROGEN 8 mg/dL (7-26); BUN/CREATININE RATIO 11 (6-25); CALCIUM 9.1 mg/dL (8.4-10.2); CARBON DIOXIDE 23 mmol/L (22-29); CHLORIDE 103 mmol/L (98-107); CHOL/HDL RATIO 4.7 (3.0-3.6); CHOLESTEROL 184 MD/DL (0-199); CREATININE, SERUM 0.73 mg/dL (0.57-1.11); EST GLOMERULAR FILTRATION RATE > 60 ML/MIN (60-); GLUCOSE 171 mg/dL (74-118); HDL CHOLESTEROL 39 MG/DL (40-60); LDL CHOLESTEROL 129 MG/DL (60-130); POTASSIUM 3.8 mmol/L (3.5-5.1); SODIUM 138 mmol/L (136-145); TRIGLYCERIDES 79 MG/DL (0-149)
[2018-01-04] MEDS: LEVALBUTEROL HCL SOLN NEBU 0.63 MG/3 ML NEB INH PRN ×3 (07:00→14:45)
--- NOTE | 2018-01-04 08:19 | History and Physical ---
REASONS FOR ADMISSION 1. Chest pain. 2. COPD exacerbation. 3. Noncompliance with her medication. HISTORY OF PRESENT ILLNESS: Patient is a 42-year-old lady, who is on Medicaid but due to, she said, issues with her medications, has not been able to get her medicines for the past couple of weeks, which unfortunately made her start having increasing shortness of breath and chest pain, so she then presented to the emergency room. She has been admitted for further evaluation. She is currently chest pain free. PAST MEDICAL HISTORY: Significant for COPD, chest pain, coronary artery disease, hypertension, anxiety, morbid obesity. MEDICATIONS: See MAY. ALLERGIES: LEVAQUIN. SOCIAL: Positive smoker still, on home oxygen. No alcohol or IV drug use. FAMILY HISTORY: Noncontributory. PHYSICAL EXAM VITALS: She is 98.6, blood pressure 156/70, pulse 80, sats 96% on 2 L nasal cannula. GENERAL: She is lying in bed, in no apparent distress. NECK: Supple. CARDIOVASCULAR: Regular rate and rhythm. LUNGS: Decreased breath sounds bilaterally. ABDOMEN: Soft, nontender. EXTREMITIES: No clubbing, cyanosis. She has chronic lymphedema. ASSESSMENT AND PLAN 1. Chest pain, rule out myocardial infarction. Consult cardiology and restart medicines. 2. Chronic obstructive pulmonary disease exacerbation. Continue with current care with the nebulizers, steroids, and oxygen. 3. Chronic respiratory failure with hypoxia. Continue with her oxygen. 4. Morbid obesity with a body mass index of 71. Patient is encouraged to lose weight. 5. Tobacco abuser. Patient was once again encouraged that she has to stop smoking if she is going to have any increased quality of life and she continues to smoke even with the oxygen on, which I told her is a risk factor and a hazard for exposure to fires. She understands. 6. Pulmonary nodule. Patient was once again told of her 5-mm pulmonary nodule, which was stable from previous exam and she was told she needs to follow up with us in approximately 6-12 months with her outpatient doctor especially with her issues of smoking. This was told to the patient, which she understands because she was told this before and she states that she will get that done as an outpatient in the future since I told her it will be her responsibility and she agrees. Please see hospital chart for full details. Job#: [id number] CQ
[2018-01-04] MEDS ORDERED: SOTALOL HCL 80 MG TAB PO SCH (09:00)
[2018-01-04 09:49] LABS: CREATINE KINASE 91 IU/L (29-168)
[2018-01-04] MEDS: FAMOTIDINE 20 MG/2 ML VIAL IV SCH ×2 (09:51→21:03)
[2018-01-04] MEDS: PANTOPRAZOLE SOD 40 MG TABEC PO SCH (09:52)
[2018-01-04] MEDS: ASPIRIN 81 MG ENTERIC COATED PO SCH (09:52)
[2018-01-04] MEDS: ESCITALOPRAM OXALATE 10 MG TAB PO SCH (09:52)
[2018-01-04] MEDS: ASPIRIN 81 MG CHEW TAB PO SCH (09:52)
[2018-01-04] MEDS: THEOPHYLLINE 200 MG TABCR PO SCH (09:52)
[2018-01-04] MEDS: ACETAZOLAMIDE 250 MG TAB PO SCH (09:52)
[2018-01-04] MEDS: GABAPENTIN 300 MG CAP PO SCH ×3 (09:52→21:03)
[2018-01-04] MEDS: ONDANSETRON HCL INJ 2 MG/ML VIAL IV PRN (11:05)
[2018-01-04] MEDS: MORPHINE SULFATE 2 MG/ML SYR IV PRN ×2 (11:06→19:21)
--- NOTE | 2018-01-04 13:12 | Consultation ---
DATE OF CONSULTATION: January 04, 2018 CARDIOLOGY CONSULTATION CHIEF COMPLAINT: Shortness of breath. HISTORY OF PRESENT ILLNESS: Ms. Matson is a 42-year-old female who continues to smoke and has not been compliant with medications. She comes in with increasing shortness of breath. She is on oxygen for her COPD. PAST MEDICAL HISTORY: As listed above. DRUG ALLERGIES: LEVAQUIN. SOCIAL HISTORY: Patient still smokes while being on oxygen. REVIEW OF SYSTEMS: Negative, except as dictated in the history of present illness. PHYSICAL EXAMINATION VITALS: Afebrile. Heart rate 100. Blood pressure is 141/99. CARDIOVASCULAR: Regular rhythm, systolic murmur, S4 gallop. LUNGS: Crackles and rhonchi bilaterally. Chest x-ray and chest CT scan were reviewed. ASSESSMENT 1. Atypical chest pain. 2. Medical noncompliance with history of chronic obstructive pulmonary disease. RECOMMENDATIONS: Continue therapy for COPD. Cardiac-escobar, she has been ruled out for myocardial infarction. Her BNP level is normal. No further cardiac evaluation is required. She is cleared from the cardiac standpoint for discharge if her breathing improves. I thank Dr. Brice for this consultation. Job#: [id number]
[2018-01-04 13:45] VITALS: BP 142/94
--- OUTSIDE RECORDS SUMMARY | 2018-01-04 14:24 | XMS REPORT | Clinical Summary ---
Author Author [facility] Organization [facility] Address Unknown Phone Unavailable Care Team Providers Care Lap Hand Tool Name Role Phone Asked, No Pcp PCP Unavailable Allergies Active Allergy Reactions [...] MG tablet total) by mouth daily. 17 atorvastatin (LIPITOR) 40 Take 1 tablet (40 [...] tablet (250 mg 30 tablet 0 12/08/19 01/07/20 250 MG tablet total) by mouth daily for 17 17 30 days. aspirin (ECOTRIN) 81 MG Take 1 tablet (81 mg 30 tablet 0 12/08/19 01/07/20 enteric coated tablet total) by mouth daily for 17 17 30 days. pantoprazole (PROTONIX) Take 1 tablet (40 mg 30 tablet 0 12/08/19 01/07/20 40 MG EC tablet total) by mouth [...] Problem Noted Date Shortness of breath 12/05/2016 Immunizations Name Dates Previously Given Next Due FLUCELVAX QUAD PF (0.5mL 12/07/2016 syringe) Social History Tobacco Use Types Packs/Day Years Used Date Current Every Day Smoker Cigarettes 1 20 Alcohol Use Drinks/Week oz/Week Comments No Sex Assigned at Date Recorded Not on file Last Filed Vital Signs Not on file Plan of Treatment Health Maintenance Due Date Last Done Comments CERVICAL CANCER SCREENING 1995 INFLUENZA VACCINE 10/20/2017 12/07/2016 Results Not on fileafter 01/02/2017
--- OUTSIDE RECORDS SUMMARY | 2018-01-04 14:28 | XMS REPORT | Clinical Summary ---
Author Author [facility] Organization [facility] Address Unknown Phone Unavailable Care Team Providers Care Sheep Or Calf Grader Name Role Phone Asked, No Pcp PCP [...]
[2018-01-04 20:33] VITALS: BP 126/81
[2018-01-04] MEDS ORDERED: ACETAMINOPHEN 325 MG TAB PO PRN (20:45)
[2018-01-04] MEDS ORDERED: ATORVASTATIN 20 MG TAB PO SCH (21:00)
[2018-01-05] VITALS: BP 113/55
[2018-01-05] MEDS: IPRATROPIUM BROMIDE 0.02% 2.5 ML NEB NEB SCH ×2 (03:00→07:00)
[2018-01-05 04:00] VITALS: BP 145/81
[2018-01-05] MEDS: MORPHINE SULFATE 2 MG/ML SYR IV PRN ×3 (04:49→14:30)
[2018-01-05] MEDS: METHYLPREDNISOLONE SOD SUCC 125 MG/2ML VIAL IV SCH ×2 (04:49→14:46)
[2018-01-05] MEDS: LEVALBUTEROL HCL SOLN NEBU 0.63 MG/3 ML NEB INH PRN (07:00)
[2018-01-05 07:42] VITALS: BP 121/60
[2018-01-05] MEDS: ASPIRIN 81 MG CHEW TAB PO SCH (08:22)
[2018-01-05] MEDS: ACETAZOLAMIDE 250 MG TAB PO SCH (08:22)
[2018-01-05] MEDS: FAMOTIDINE 20 MG/2 ML VIAL IV SCH (08:22)
[2018-01-05] MEDS: GABAPENTIN 300 MG CAP PO SCH ×2 (08:23→14:46)
[2018-01-05] MEDS: ASPIRIN 81 MG ENTERIC COATED PO SCH (08:23)
[2018-01-05] MEDS: SOTALOL HCL 80 MG TAB PO SCH (08:23)
[2018-01-05] MEDS: ESCITALOPRAM OXALATE 10 MG TAB PO SCH (08:23)
[2018-01-05] MEDS: THEOPHYLLINE 200 MG TABCR PO SCH (08:23)
[2018-01-05] MEDS: PANTOPRAZOLE SOD 40 MG TABEC PO SCH (08:23)
[2018-01-05] MEDS: ONDANSETRON HCL INJ 2 MG/ML VIAL IV PRN ×2 (08:30→14:30)
[2018-01-05] MEDS ORDERED: NICOTINE 21 MG/EA PATCH TOP SCH (09:00)
[2018-01-05 11:37] VITALS: BP 108/60
--- NOTE | 2018-01-05 13:23 | Progress Note ---
DATE: January 05, 2018 CARDIOLOGY PROGRESS NOTE SUBJECTIVE: No major events overnight. No further chest pain. OBJECTIVE VITAL SIGNS: Temperature 97.6, pulse 88, respiratory rate 19, blood pressure 121/60, satting 95% on nasal cannula. GENERAL: Morbidly obese female in no acute distress. CARDIOVASCULAR: Difficult exam due to body habitus. PMI could not be palpated. Normal S1, S2. No murmurs, rubs or gallops. LUNGS: Clear to auscultation bilaterally. No respiratory distress. ABDOMEN: Extremely obese, soft, nontender. NEURO AND PSYCH: Alert and oriented to person, place and time. Normal affect. LABORATORY DATA: Reviewed. MEDICATIONS: Reviewed. IMAGING DATA: Reviewed. ASSESSMENT AND PLAN 1. Atypical chest pain. 2. Morbid obesity. 3. History of atrial fibrillation on anticoagulation. 4. Chronic obstructive pulmonary disease. PLAN: Patient has been ruled out for acute MD with serial enzymes and ECGs. Chest pain is atypical. No further cardiac workup is needed as an inpatient given her age and other risk factors. Discussed smoking cessation with the patient. The patient okay to be discharged from a cardiovascular standpoint. Her CHADS-VASc score is only 1 for hypertension and does not need anticoagulation other than aspirin for her paroxysmal atrial fibrillation. She was placed on Sotalol by an outside nurse leader, and we will continue this. Patient is okay to be discharged from a cardiovascular standpoint. We will continue to follow. Job#: [id number]
[2018-01-05 15:16] VITALS: BP 146/81
--- NOTE | 2018-03-19 16:02 | Discharge Summary ---
DISCHARGE DIAGNOSES 1. Chest pain, rule out myocardial infarction. 2. Acute exacerbation of chronic obstructive pulmonary disease. 3. Hypertension. HISTORY OF PRESENT ILLNESS AND HOSPITAL COURSE: See hospital chart for full details. Patient is a 42-year-old who presented with chest pain and COPD exacerbation. She was brought in and placed on nebulizer treatments and steroids, which helped to make the patient feel significantly better. For COPD, she was instructed to quit smoking. She was given a nicotine patch. At the time of discharge, she felt like she was back to her baseline. So, she was able to be discharged and told to followup in 1 to 2 weeks with her primary care physician. Please see hospital chart for full details. SOL OJEDA MD Job#: [id number]
== END 2018-01-05 17:22 | disposition home or self-care (01) ==
LOC: ER 16:24 → ERHOLD 21:29 → IMCU 01-04 13:35
PROVIDERS: ADMIT Internal Medicine; ATTEND Internal Medicine
DX: J44.1 Chronic obstructive pulmonary disease with (acute) exacerbation (principal); R07.89 Other chest pain; J96.11 Chronic respiratory failure with hypoxia; Z99.81 Dependence on supplemental oxygen; Z91.19 Patient's noncompliance with other medical treatment and regimen; F17.200 Nicotine dependence, unspecified, uncomplicated; I10 Essential (primary) hypertension; I25.10 Atherosclerotic heart disease of native coronary artery without angina pectoris; F41.9 Anxiety disorder, unspecified; E66.01 Morbid (severe) obesity due to excess calories; Z68.42 Body mass index [BMI] 45.0-49.9, adult; Z86.711 Personal history of pulmonary embolism; Z79.82 Long term (current) use of aspirin; Z88.1 Allergy status to other antibiotic agents
CPT/HCPCS: 36415 ×2; 71046; 71260; 80048; 80053; 80061; 82550 ×2; 82553 ×2; 83880; 84484 ×2; 85025 ×2; 85610; 85730; 93005; 94640 ×5; 99284; G0378 ×3; J1100; J2270 ×3; J2405 ×2; J2930 ×3; Q9967; S0164 ×2

== ENCOUNTER 2018-02-20 23:01 | Emergency (ER) | payer SELFPAY ==
--- OUTSIDE RECORDS SUMMARY | 2018-02-20 23:04 | XMS REPORT | Clinical Summary ---
Author Author [facility] Organization [facility] Address Unknown Phone Unavailable Care Team Providers Care Line Crew Supervisor Name Role Phone Asked, No Pcp PCP Unavailable Allergies Comments Active Allergy Reactions Severity Noted Date Morphine Shortness Of High 12/05/2016 Breath Medications End Date Status Medication Sig Dispensed Refills Start Date Active ondansetron ODT Take 4 mg by 0 (ZOFRAN-ODT) 4 MG mouth every 8 disintegrating tablet (eight) hours. Active warfarin (COUMADIN) 7.5 Take 1 tablet 30 tablet 11 201 MG tablet (7.5 mg 7 total) by mouth daily. Active Problems Problem Noted Date Shortness of breath 12/05/2016 Immunizations Name Dates Previously Given Next Due FLUCELVAX QUAD PF (0.5mL 12/07/2016 syringe) Social History Date Tobacco Use Types Packs/Day Years Used Current Every Day Smoker Cigarettes 1 20 Alcohol Use Drinks/Week oz/Week Comments No Sex Assigned at Date Recorded Not on file Industry Job Start Date Occupation Not on file Not on file Not on file Travel End Travel History Travel Start No recent travel history available. Last Filed Vital Signs Not on file Plan of Treatment Health Maintenance Due Date Last Done Comments MMR VACCINES (1 of - 1975 Standard series) VARICELLA VACCINES (1 of 1987 2 - 2-dose adolescent series) CERVICAL CANCER SCREENING 1995 INFLUENZA VACCINE 10/20/2017 12/07/2016 HEPATITIS B VACCINES Aged Out No longer eligible based on patient's age to complete this topic IPV VACCINES Aged Out No longer eligible based on patient's age to complete this topic MENINGOCOCCAL VACCINE Aged Out No longer eligible based on patient's age to complete this topic Results Not on fileafter 02/19/2017 Advance Directives Patient has advance care planning documents on file. For more information, ginger vasquez contact: Ritchie Parks [address] [place] [address]
== END 2018-02-20 23:08 | disposition left against medical advice (07) ==
LOC: ER 23:01
DX: R07.9 Chest pain, unspecified (principal)

== ENCOUNTER 2018-08-09 01:11 | Emergency (ER) | payer BC, MEDICAID ==
[~2018-08-09] VITALS: Ht 165.1 cm; Wt 172.4 kg
--- OUTSIDE RECORDS SUMMARY | 2018-08-09 01:14 | XMS REPORT | Clinical Summary ---
Author Author Ritchie [facility] Organization [facility] Address Unknown Phone Unavailable Care Team Providers Care Highway Technician Name Role Phone Asked, No Pcp PCP Unavailable Allergies Comments Active Allergy Reactions Severity Noted Date Morphine Shortness Of High 12/05/2016 Breath Medications End Date Status Medication Sig Dispensed Refills Start Date Active ondansetron ODT Take 4 mg by 0 (ZOFRAN-ODT) 4 MG mouth every 8 disintegrating tablet (eight) hours. Active warfarin (COUMADIN) 7.5 Take 1 tablet 30 tablet 11 12/07/201 MG tablet (7.5 mg 7 total) by [...] Comments CERVICAL CANCER SCREENING 1995 INFLUENZA VACCINE 10/20/2018 12/07/2016 Results Not on fileafter 08/08/2017 Advance Directives Patient has advance care planning documents on file. For more information, ginger vasquez contact: Ritchie Parks [address] [place] [id number]
[2018-08-09] MEDS ORDERED: LEVALBUTEROL HCL SOLN NEBU 1.25 MG/3 ML NEB INH ONE (02:30)
[2018-08-09] MEDS ORDERED: IPRATROPIUM BROMIDE 0.02% 2.5 ML NEB NEB ONE (02:30)
--- NOTE | 2018-08-09 02:38 | NUR ---
RT CALLED FOR BREATHING TREATMENT.
--- NOTE | 2018-08-09 02:59 | Diagnostic Imaging Report ---
Exam: Right foot 3 views History: Pain Comparison: None. Findings: No fracture or malalignment. Joint spaces preserved. 3 mm radiopaque density adjacent to the navicular. Impression: 3 mm radiopaque density adjacent to the navicular favored to reflect soft tissue calcification. No plantar radiopaque foreign body. Signed by: Dr. Abbe Saenz M.D. on 08/09/2018 2:56 AM
[2018-08-09 03:35] VITALS: BP 118/73
== END 2018-08-09 03:56 | disposition home or self-care (01) ==
LOC: ER 01:11
DX: M79.671 Pain in right foot (principal); J44.9 Chronic obstructive pulmonary disease, unspecified; I10 Essential (primary) hypertension; I51.9 Heart disease, unspecified; I25.2 Old myocardial infarction; F17.210 Nicotine dependence, cigarettes, uncomplicated
CPT/HCPCS: 94640; 99283

== ENCOUNTER 2018-10-08 12:35 | Emergency (ER) | payer BC ==
[~2018-10-08] VITALS: Ht 165.1 cm; Wt 172.4 kg
--- OUTSIDE RECORDS SUMMARY | 2018-10-08 12:38 | XMS REPORT | Clinical Summary ---
Author Author Ritchie [facility] Organization [facility] Address Unknown Phone Unavailable Care Team Providers Care Tavern Operator Name Role Phone Asked, No Pcp PCP [...] Health Maintenance Due Date Last Done Comments INFLUENZA VACCINE 10/20/2018 12/07/2016 Results Not on fileafter 10/07/2017 Advance Directives Patient has advance care planning documents on file. For more information, ginger vasquez contact: Ritchie Parks [address] [place] [address]
[2018-10-08] MEDS ORDERED: SODIUM CHLORIDE 0.9% 1000ML 1,000 ML IV STA (12:48)
[2018-10-08] MEDS ORDERED: ASPIRIN 81 MG CHEW TAB PO ONE (13:00)
[2018-10-08 13:30] LABS: BASOPHILS % 0.3 % (0.0-1.0); EOSINOPHILS # (AUTO) 0.2 (0.0-0.4); EOSINOPHILS % 1.7 % (0.0-6.0); HEMATOCRIT 36.4 % (34.2-44.1); HEMOGLOBIN 10.7 g/dL (12.0-16.0); LYMPHOCYTES # (AUTO) 2.4 (1.0-3.2); LYMPHOCYTES % 26.8 % (18.0-39.1); MEAN CORPUSCULAR HEMOGLOBIN 22.6 pg (28-32); MEAN CORPUSCULAR HGB CONC 29.4 g/dL (31-35); MEAN CORPUSCULAR VOLUME 76.8 fL (81-99); MONOCYTES # (AUTO) 0.6 (0.2-0.8); MONOCYTES % 6.4 % (4.4-11.3); NEUTROPHILS # (AUTO) 5.8 (2.1-6.9); NEUTROPHILS % 64.4 % (38.7-80.0); PLATELET COUNT 360 x10e3/uL (140-360); RED BLOOD COUNT 4.74 x10e6/uL (3.6-5.1); RED CELL DISTRIBUTION WIDTH 17.7 % (11.7-14.4)
[2018-10-08] MEDS ORDERED: METOPROLOL SUCCINATE 50 MG TAB XL PO ONE (13:30)
[2018-10-08] MEDS ORDERED: CEFTRIAXONE SOD 1 GM/NS 50 ML 50 ML IV ONE (13:30)
[2018-10-08] MEDS ORDERED: AMIODARONE HCL 200 MG TAB PO ONE (13:30)
[2018-10-08] MEDS ORDERED: ONDANSETRON HCL INJ 2MG/ML 2ML 2 MG/ML VIAL IV ONE (13:30)
[2018-10-08] MEDS ORDERED: KETOROLAC TROMETHAMINE 30 MG/ML VIAL IV ONE (13:30)
[2018-10-08 13:45] LABS: INR 0.93
[2018-10-08 13:57] LABS: ALANINE AMINOTRANSFERASE 14 IU/L (0-55); ALBUMIN 3.5 g/dL (3.5-5.0); ALBUMIN/GLOBULIN RATIO 0.9 (0.8-2.0); ALKALINE PHOSPHATASE 73 IU/L (40-150); ANION GAP 14.3 mmol/L (8-16); BLOOD UREA NITROGEN 6 mg/dL (7-26); BUN/CREATININE RATIO 8 (6-25); CALCIUM 9.1 mg/dL (8.4-10.2); CARBON DIOXIDE 25 mmol/L (22-29); CHLORIDE 105 mmol/L (98-107); CREATINE KINASE 84 IU/L (29-168); EST GLOMERULAR FILTRATION RATE > 60 ML/MIN (60-); GLUCOSE 92 mg/dL (74-118); POTASSIUM 3.3 mmol/L (3.5-5.1); SODIUM 141 mmol/L (136-145)
[2018-10-08 14:22] LABS: PREGNANCY TEST, URINE NEGATIVE (NEGATIVE)
[2018-10-08 14:23] LABS: BILIRUBIN,URINE SMALL (NEGATIVE); CLARITY,URINE CLEAR (CLEAR); COLOR,URINE YELLOW (YELLOW); KETONES,URINE NEGATIVE (NEGATIVE); LEUKOCYTE ESTERASE ,URINE NEGATIVE (NEGATIVE); NITRITE,URINE NEGATIVE (NEGATIVE); PROTEIN,URINE DIPSTICK 1+ (NEGATIVE); URINE UROBILINOGEN 0.2 mg/dL (0.2 - 1)
--- NOTE | 2018-10-08 14:29 | Diagnostic Imaging Report ---
EXAMINATION: ABDOMEN ACUTE SERIES W/PA CXR INDICATION: Chest pains. Severe stomach pain. COMPARISON: None FINDINGS: TUBES and LINES: None. LUNGS: Lungs are well inflated. There are bibasilar atelectasis. There is no evidence of pneumonia or pulmonary edema. PLEURA: No pleural effusion or pneumothorax. HEART AND MEDIASTINUM: The cardiomediastinal silhouette is unremarkable. BONES AND SOFT TISSUES: There are degenerative changes in the lumbar spine. Soft tissues are unremarkable. ABDOMEN: No free air under the diaphragm. Normal bowel gas pattern. No significant amount of stool. IMPRESSION: No acute thoracic abnormality. No acute abdominal abnormalities. No bowel obstruction. No constipation. Signed by: Dr. Shiva Rebolledo M.D. on 10/08/2018 2:26 PM
[2018-10-08 14:37] LABS: BACTERIA,URINE MODERATE /HPF; WBC,URINE (MAN) 0-5 /HPF (0-5)
[2018-10-08 14:38] LABS: CYSTINE CRYSTALS,URINE MANY; EPITHELIAL CELLS,URINE MANY /LPF
[2018-10-08 15:35] VITALS: BP 131/85
== END 2018-10-08 15:47 | disposition home or self-care (01) ==
LOC: ER 12:35
DX: R10.84 Generalized abdominal pain (principal); R00.2 Palpitations; Z76.0 Encounter for issue of repeat prescription; I10 Essential (primary) hypertension; E78.5 Hyperlipidemia, unspecified; I50.9 Heart failure, unspecified; J44.9 Chronic obstructive pulmonary disease, unspecified; I25.2 Old myocardial infarction; Z95.5 Presence of coronary angioplasty implant and graft
CPT/HCPCS: 36415; 74022; 80053; 81001; 81025; 82550; 82553; 83880; 84484; 85025; 85610; 85730; 87086; 93005; 99284; J0696; J1885; J2405; J7030

== ENCOUNTER 2018-11-22 01:30 | Emergency (ER) | payer SELFPAY ==
[~2018-11-22] VITALS: Ht 165.1 cm; Wt 172.4 kg
--- OUTSIDE RECORDS SUMMARY | 2018-11-22 01:32 | XMS REPORT | Clinical Summary ---
Author Author Ritchie [facility] Organization [facility] Address Unknown Phone Unavailable Care Team Providers Care Landscape Architect Name Role Phone Asked, No Pcp PCP [...] Date Shortness of breath 12/05/2016 Immunizations Name Administration Dates Next Due FLUCELVAX QUAD PF 12/07/2016 Social History Date Tobacco Use Types Packs/Day Years Used Current Every Day Smoker Cigarettes 1 20 Drinks/Week oz/Week Comments Alcohol Use No Sex Assigned at Date Recorded Not on file Industry Job Start Date Occupation Not on file Not on file Not on file Travel End Travel History Travel Start No recent travel history available. Last Filed Vital Signs Not on file Plan of Treatment Health Maintenance Due Date Last Done Comments CERVICAL CANCER SCREENING 1995 INFLUENZA VACCINE 10/20/2018 12/07/2016 Results Not on fileafter 11/21/2017 Advance Directives For more information, please contact: [phone] Patient Veterinary Assistant Technician Explanation Type Date Recorded Advance Directives, 12/05/2016 9:19 PM Living Will and Medical Power of Hotel Reservation Agent
[2018-11-22] MEDS ORDERED: LEVALBUTEROL HCL SOLN NEBU 1.25 MG/3 ML NEB INH ONE (01:45)
[2018-11-22] MEDS ORDERED: METHYLPREDNISOLONE SOD SUCC 125 MG/2ML VIAL IV ONE (01:45)
[2018-11-22] MEDS ORDERED: IPRATROPIUM BROMIDE 0.02% 2.5 ML NEB NEB ONE (01:45)
[2018-11-22 02:18] LABS: BASOPHILS % 0.4 % (0.0-1.0); EOSINOPHILS # (AUTO) 0.2 (0.0-0.4); EOSINOPHILS % 2.1 % (0.0-6.0); HEMATOCRIT 35.2 % (34.2-44.1); HEMOGLOBIN 10.4 g/dL (12.0-16.0); LYMPHOCYTES # (AUTO) 2.9 (1.0-3.2); LYMPHOCYTES % 34.6 % (18.0-39.1); MEAN CORPUSCULAR HEMOGLOBIN 22.1 pg (28-32); MEAN CORPUSCULAR HGB CONC 29.5 g/dL (31-35); MEAN CORPUSCULAR VOLUME 74.9 fL (81-99); MONOCYTES # (AUTO) 0.4 (0.2-0.8); MONOCYTES % 5.2 % (4.4-11.3); NEUTROPHILS # (AUTO) 4.9 (2.1-6.9); NEUTROPHILS % 57.3 % (38.7-80.0); PLATELET COUNT 367 x10e3/uL (140-360); RED CELL DISTRIBUTION WIDTH 18.1 % (11.7-14.4)
[2018-11-22 02:30] LABS: ALANINE AMINOTRANSFERASE 8 IU/L (0-55); ALBUMIN 3.3 g/dL (3.5-5.0); ALKALINE PHOSPHATASE 80 IU/L (40-150); ANION GAP 15.6 mmol/L (8-16); BLOOD UREA NITROGEN 10 mg/dL (7-26); BUN/CREATININE RATIO 12 (6-25); CALCIUM 8.8 mg/dL (8.4-10.2); CARBON DIOXIDE 25 mmol/L (22-29); CHLORIDE 102 mmol/L (98-107); CREATINE KINASE 85 IU/L (29-168); CREATININE, SERUM 0.84 mg/dL (0.57-1.11); EST GLOMERULAR FILTRATION RATE > 60 ML/MIN (60-); GLUCOSE 94 mg/dL (74-118); POTASSIUM 3.6 mmol/L (3.5-5.1); SODIUM 139 mmol/L (136-145)
--- NOTE | 2018-11-22 02:50 | Diagnostic Imaging Report ---
EXAMINATION: CHEST SINGLE (PORTABLE) COMPARISON: Chest x-ray 06/12/2017, CT chest 01/03/2018 INDICATION: Shortness of breath, chest pain, cough ^sob ^Y DISCUSSION: Frontal view of the chest obtained at 0210 hours. HEART AND MEDIASTINUM: The cardiomediastinal silhouette is unremarkable. LINES: None. LUNGS: The lungs are diffusely hyperinflated. No infiltrates. No pulmonary edema. PLEURA: No pleural effusion or pneumothorax. BONES AND SOFT TISSUES: No focal osseous lesion. The soft tissues are normal. IMPRESSION: Stable pulmonary hyperinflation. No acute cardiopulmonary process. Signed by: Dr. Ally Quiros MD on 11/22/2018 2:46 AM
[2018-11-22 02:57] VITALS: BP 100/71
== END 2018-11-22 03:08 | disposition home or self-care (01) ==
LOC: ER 01:30
DX: R06.09 Other forms of dyspnea (principal); R05 Cough; J44.1 Chronic obstructive pulmonary disease with (acute) exacerbation; J20.9 Acute bronchitis, unspecified; I10 Essential (primary) hypertension; I50.9 Heart failure, unspecified; I25.2 Old myocardial infarction; E78.5 Hyperlipidemia, unspecified; Z95.5 Presence of coronary angioplasty implant and graft; F17.210 Nicotine dependence, cigarettes, uncomplicated
CPT/HCPCS: 36415; 71045; 80053; 82550; 82553; 83880; 84484; 85025; 93005; 94640; 96374; 99284; J2930

== ENCOUNTER 2019-03-09 23:44 | Emergency (ER) | payer MEDICARE ==
[~2019-03-09] VITALS: Ht 165.1 cm; Wt 172.4 kg
[2019-03-10] MEDS ORDERED: IPRATROPIUM BROMIDE 0.02% 2.5 ML NEB NEB ONE (00:30)
[2019-03-10] MEDS ORDERED: ASPIRIN 81 MG CHEW TAB PO ONE (00:30)
[2019-03-10] MEDS ORDERED: LEVALBUTEROL HCL SOLN NEBU 0.63 MG/3 ML NEB INH ONE (00:30)
[2019-03-10 01:15] LABS: BASOPHILS % 0.3 % (0.0-1.0); EOSINOPHILS # (AUTO) 0.2 (0.0-0.4); EOSINOPHILS % 1.7 % (0.0-6.0); HEMOGLOBIN 10.2 g/dL (12.0-16.0); LYMPHOCYTES # (AUTO) 3.6 (1.0-3.2); LYMPHOCYTES % 30.8 % (18.0-39.1); MEAN CORPUSCULAR HEMOGLOBIN 20.3 pg (28-32); MEAN CORPUSCULAR HGB CONC 27.6 g/dL (31-35); MEAN CORPUSCULAR VOLUME 73.7 fL (81-99); MONOCYTES # (AUTO) 0.6 (0.2-0.8); MONOCYTES % 5.3 % (4.4-11.3); NEUTROPHILS # (AUTO) 7.1 (2.1-6.9); NEUTROPHILS % 61.2 % (38.7-80.0); PLATELET COUNT 334 x10e3/uL (140-360); RED BLOOD COUNT 5.02 x10e6/uL (3.6-5.1); RED CELL DISTRIBUTION WIDTH 19.3 % (11.7-14.4)
--- NOTE | 2019-03-10 01:18 | Diagnostic Imaging Report ---
EXAMINATION: CHEST SINGLE (NOT PORTABLE) INDICATION: ^SOB, CP, COUGH ^[id number] ^[id number] COMPARISON: 10/08/2018 FINDINGS: AP view TUBES and LINES: None. LUNGS: Lungs are well inflated. Mild central vascular congestion. No definite focal consolidation. PLEURA: No pleural effusion or pneumothorax. HEART AND MEDIASTINUM: The cardiomediastinal silhouette is unremarkable. BONES AND SOFT TISSUES: No acute osseous lesion. Soft tissues are unremarkable. UPPER ABDOMEN: No free air under the diaphragm. IMPRESSION: Mild central vascular congestion. No definite focal consolidation. Signed by: Dr. Geovanny Almaguer MD on 03/10/2019 1:14 AM
[2019-03-10 01:25] LABS: INR 0.88; PROTHROMBIN TIME 12.4 seconds (11.9-14.5)
[2019-03-10 01:35] LABS: ALANINE AMINOTRANSFERASE 12 IU/L (0-55); ALBUMIN 3.1 g/dL (3.5-5.0); ALBUMIN/GLOBULIN RATIO 0.9 (0.8-2.0); ALKALINE PHOSPHATASE 72 IU/L (40-150); ANION GAP 12.4 mmol/L (8-16); BLOOD UREA NITROGEN 12 mg/dL (7-26); BUN/CREATININE RATIO 16 (6-25); CALCIUM 9.1 mg/dL (8.4-10.2); CARBON DIOXIDE 28 mmol/L (22-29); CHLORIDE 100 mmol/L (98-107); CREATINE KINASE 62 IU/L (29-168); CREATININE, SERUM 0.74 mg/dL (0.57-1.11); EST GLOMERULAR FILTRATION RATE > 60 ML/MIN (60-); GLUCOSE 98 mg/dL (74-118); MAGNESIUM 1.6 MG/DL (1.3-2.1); POTASSIUM 3.4 mmol/L (3.5-5.1); SODIUM 137 mmol/L (136-145)
[2019-03-10] MEDS ORDERED: DILTIAZEM HCL ER 90MG CAPSULE PO ONE (01:45)
[2019-03-10 01:54] LABS: AMPHETAMINES SCREEN,URINE NEGATIVE (NEGATIVE); BENZODIAZEPINES SCREEN,URINE NEGATIVE (NEGATIVE); BILIRUBIN,URINE NEGATIVE (NEGATIVE); CLARITY,URINE CLOUDY (CLEAR); COLOR,URINE YELLOW (YELLOW); KETONES,URINE TRACE (NEGATIVE); LEUKOCYTE ESTERASE ,URINE MODERATE (NEGATIVE); NITRITE,URINE NEGATIVE (NEGATIVE); PHENCYCLIDINE SCREEN,URINE NEGATIVE (NEGATIVE); PROTEIN,URINE DIPSTICK NEGATIVE (NEGATIVE); URINE UROBILINOGEN 0.2 mg/dL (0.2 - 1)
[2019-03-10 02:05] LABS: BACTERIA,URINE MANY /HPF; EPITHELIAL CELLS,URINE MANY /LPF
[2019-03-10 02:08] LABS: OTHER CRYSTALS,URINE PRESENT
[2019-03-10] MEDS ORDERED: METHYLPREDNISOLONE SOD SUCC 125 MG/2ML VIAL IV STA (03:30)
[2019-03-10 03:52] LABS: CREATINE KINASE 68 IU/L (29-168)
[2019-03-10 04:09] VITALS: BP 137/89
== END 2019-03-10 04:14 | disposition home or self-care (01) ==
LOC: ER 23:44
DX: J44.0 Chronic obstructive pulmonary disease with (acute) lower respiratory infection (principal); J20.9 Acute bronchitis, unspecified; J44.1 Chronic obstructive pulmonary disease with (acute) exacerbation; E66.01 Morbid (severe) obesity due to excess calories; Z68.44 Body mass index [BMI] 60.0-69.9, adult; I11.0 Hypertensive heart disease with heart failure; I50.9 Heart failure, unspecified; I48.91 Unspecified atrial fibrillation; F17.200 Nicotine dependence, unspecified, uncomplicated; G47.33 Obstructive sleep apnea (adult) (pediatric); E78.5 Hyperlipidemia, unspecified; Z79.82 Long term (current) use of aspirin
CPT/HCPCS: 36415; 71045; 80053; 80307; 81001; 82550; 82553; 83735; 83880; 84484; 84702; 85025; 85610; 85730; 87040; 87071; 87205; 93005; 94640; 99283; J2930